=== PATIENT | female | born 1945 | race Caucasian/White ===

== ENCOUNTER 2021-11-02 09:01 | Day surgery (SDC) | payer MEDICARE, MEDICAID ==
[~2021-11-02] VITALS: Ht 170.2 cm; Wt 94.1 kg
[2021-11-02 09:26] VITALS: BP 151/74
[2021-11-02] MEDS ORDERED: albumin 25% 100mL bottle x 1 IV PRN (09:30)
[2021-11-02 09:41] VITALS: BP 140/74
[2021-11-02 09:56] VITALS: BP 139/78
[2021-11-02 10:11] VITALS: BP 142/69
[2021-11-02 10:26] VITALS: BP 137/67
[2021-11-02] MEDS ORDERED: FLUT1BLS3 INH (10:45)
[2021-11-02] MEDS ORDERED: HYDR-4069 PO (10:45)
[2021-11-02] MEDS ORDERED: PER5325T PO (10:45)
[2021-11-02] MEDS ORDERED: ATOR40TA72 PO (10:45)
[2021-11-02] MEDS ORDERED: PROC10TA10 PO (10:45)
[2021-11-02] MEDS ORDERED: MORP15TA PO (10:45)
[2021-11-02] MEDS ORDERED: IPRA3AMP31 PO (10:45)
[2021-11-02] MEDS ORDERED: ONDA4TAB12 PO (10:49)
[2021-11-02] MEDS ORDERED: FOLI-83 PO (10:49)
[2021-11-02] MEDS ORDERED: DIPH-423 PO (10:49)
[2021-11-03] MEDS ORDERED: FLU VACC QS2021-22(6MOS UP)/PF 60 MCG/0.5 ML SYRINGE IM ONE (10:00)
[2021-11-03] MEDS ORDERED: pneumococcal 23-VAL P-sac vacc 25 mcg/0.5ml vial IMVAC ONE (10:00)
== END 2021-11-02 10:45 | disposition home or self-care (01) ==
LOC: SSTAY O 09:01
PROVIDERS: ATTEND Preventive Medicine Aerospace Medicine
DX: J90 Pleural effusion, not elsewhere classified (principal); J45.909 Unspecified asthma, uncomplicated; E78.5 Hyperlipidemia, unspecified; I10 Essential (primary) hypertension; Z90.710 Acquired absence of both cervix and uterus; Z85.118 Personal history of other malignant neoplasm of bronchus and lung; Z79.899 Other long term (current) drug therapy
CPT/HCPCS: 32555